=== PATIENT | female | born 1995 | race African-American/Black ===

== ENCOUNTER 2017-11-10 03:20 | Observation (INO) | payer MEDICAID ==
[2017-11-10] MEDS ORDERED: IV RINGERS,LACTATED 1000ML 1,000 ML IV PRN (03:30)
[2017-11-10 04:03] LABS: BILIRUBIN,URINE NEGATIVE (NEG); CLARITY,URINE CLEAR; COLOR,URINE YELLOW; NITRITE,URINE NEGATIVE (NEG); PH,URINE 6.5; PROTEIN,URINE NEGATIVE (NEG-TRACE)
[2017-11-10 04:13] LABS: BARBITURATES NEG (NEG); BENZODIAZEPINES NEG (NEG); CANNABINOIDS NEG (NEG); COCAINE NEG (NEG); METHADONE NEG (NEG); OPIATES NEG (NEG); PHENCYCLIDINE NEG (NEG)
[2017-11-10 04:15] LABS: AMPHETAMINE/METHAMPHETAMINE NEG (NEG)
[2017-11-10 04:57] LABS: BACTERIA,URINE MODERATE /HPF (0-FEW); SQUAMOUS EPITHELIAL CELL,UR MANY /LPF
[2017-11-13] MEDS ORDERED: PREN1TAB13 PO (13:45)
[2017-11-13] MEDS ORDERED: FOLI1TAB16 PO (13:45)
[2017-11-13] MEDS ORDERED: OXYC1TAB7 PO (13:45)
== END 2017-11-10 04:25 | disposition home or self-care (01) ==
LOC: 3 SO LND 03:20
PROVIDERS: ADMIT Obstetrics & Gynecology; ATTEND Obstetrics & Gynecology
DX: O26.892 Other specified pregnancy related conditions, second trimester (principal); R10.9 Unspecified abdominal pain; Z79.899 Other long term (current) drug therapy; Z3A.24 24 weeks gestation of pregnancy
CPT/HCPCS: 80307; 81001; 87086; G0378; G0379; G0479